=== PATIENT | female | born 1970 | race Caucasian/White ===

== ENCOUNTER 2023-08-12 12:30 | Emergency (ER) | payer BC, SELFPAY ==
[2023-08-12 13:02] VITALS: BP 141/103
[2023-08-12 13:23] LABS: % Basophils 0.5 % (0-2); % Eosinophils 1.7 % (0-6); % Immature Granulocytes 0.2 % (0-0.5); % Lymphocytes 43.1 % (20.5-51.1); % Monocytes 6.7 % (1.7-9.3); % Neutrophils 47.8 % (42.2-75.2); Absolute Eosinophils 0.1 10^3/uL (0-0.7); Absolute Lymphocytes 2.8 10^3/uL (1.2-3.4); Absolute Monocytes 0.4 10^3/uL (0.1-0.6); Absolute Neutrophils 3.1 10^3/uL (1.4-6.5); Hematocrit 39.2 % (37.0-47.0); Hemoglobin 13.3 g/dL (12.0-16.0); Mean Corp Hgb Conc. 33.9 g/dL (33.0-37.0); Mean Corpuscular Hgb 29.9 pg (27.0-31.0); Mean Corpuscular Volume 88.1 fL (81.0-99.0); Mean Platelet Volume 9.8 fL (7.4-10.4); Nucleated Red Blood Cells % 0 %; Platelet Count 280 10^3/uL (130-400); Red Blood Cell Count 4.45 10^6/uL (4.20-5.40); Red Cell Dist. Width 12.6 % (11.5-14.5); White Blood Cell Count 6.4 10^3/uL (4.8-10.8)
[2023-08-12 13:36] LABS: ALT (SGPT) 23 U/L (0-35); AST (SGOT) 24 U/L (14-36); Albumin 4.9 g/dl (3.5-5.0); Alkaline Phosphatase 98 U/L (38-126); Blood Urea Nitrogen 11 mg/dl (7-17); Calcium 9.3 mg/dl (8.4-10.2); Carbon Dioxide 27 mmol/L (22-30); Chloride 106 mmol/L (98-107); Glucose 96 mg/dl (70-99); Lipase 135 U/L (23-300); Potassium 3.9 mmol/L (3.5-5.1); Sodium 139 mmol/L (135-145); Total Bilirubin 0.4 mg/dl (0.2-1.3); Total Protein 7.5 g/dl (6.3-8.2); eGFR > 60.00
--- NOTE | 2023-08-12 16:31 | ED.GENMED ---
History of Present Illness
General
Chief Complaint: Abdominal Pain
Time Seen by Provider: 08/12/23 15:31
Travel History
Have you had any contact with someone who has COVID-19?: No
Do you have any symptoms of coronavirus? Fever > 100 degrees, chills, cough, shortness of breath, sore throat, loss of taste or smell, muscle aches, or headache?: No
History of Present Illness
History of Present Illness:
53-year-old female With hyperlipidemia presents to the emergency department for evaluation of left upper abdominal pain that began yesterday. Began randomly, no obvious provoking or palliating factors. Denies any postprandial discomfort. Pain is
described as a 'pulsating and sharp discomfort. No fever, chills, sweats, nausea, vomiting, or diarrhea. No history of intra-abdominal surgeries in the past.
Past History
Past History
ED Past Medical History: Other (Anxiety)
Social History
Tobacco: Non-smoker
Alcohol: Occasional
Family History
Family History: Negative Diabetes, Hypertension or CAD
Review of Systems
Review of Systems
Allergies reviewed?: Yes
All Other Systems: ROS reviewed and negative except as documented in HPI and ROS
Phy Exam
Physical Exam
Physical Exam:
GEN: Well appearing, NAD, WDWN
Eyes: PERRLA, EOMs intact, no scleral icterus
HENT: NCAT, oral mucosa moist
Lungs: CTAB, no wheezes, rales, rhonchi, normal chest wall excursion
Cardiac: RRR, no M/R/G, no peripheral edema. Radial pulses 2+ bilat
Abdomen: Generally soft to all 4 quadrants, mild tenderness to left upper quadrant, no rigidity or peritoneal signs, no rebound tenderness
Neuro: AO x 3
MSK: No gross deformity or ecchymosis.
Skin: No rashes, petechiae. Normal color, no pallor or jaundice.
Psych: Calm, cooperative, proper hygiene
Course
Orders/Labs/Results
Orders:
Orders
08/12/23 13:04
Electrocardiogram (*1) Urgent
Reason for Study: Abdominal Pain
08/12/23 13:05
EKG- Treatment ONCE
08/12/23 13:14
Complete Blood Count/With Diff Urgent
Comprehensive Metabolic Panel Urgent
Lipase Urgent
08/12/23 16:30
CT Abd/Pel (IV only)-DH only Urgent
Comment:
Reason For Exam: LUQ abd pain
08/12/23 13:14
08/12/23 13:14
Vital Signs
Initial and Last Documented VS:
Initial Vital Signs
Temp Pulse Resp BP Pulse Ox
98.2 F 75 16 141/103 98
08/12/23 13:02 08/12/23 13:02 08/12/23 13:02 08/12/23 13:02 08/12/23 13:02
Last Documented Vital Signs
Temp Pulse Resp BP Pulse Ox
98.2 F 75 16 141/103 98
08/12/23 13:02 08/12/23 13:02 08/12/23 13:02 08/12/23 13:02 08/12/23 13:02
MDM/Problems Addressed
MDM/Problems Addressed:
Imaging obtained to the patient's degree of tenderness. Full workup was grossly unremarkable. There are no skin changes to suggest early zoster however this was discussed with the patient has a remote possibility. No clear intra-abdominal
pathology,
*Critical Care Note
Total Time (30-74mins, 75-104mins- exclusive of procedures): Not Applicable
ED Attending Note
-
Portions of this chart may have been created with voice recognition software.� Occasional wrong word or��sound alike� substitutions may have occurred due to the inherent limitations of voice recognition software.
Discharge Plan
Departure
Patient Disposition: Home (Routine Discharge)
Date of Disposition: 08/12/23
Time of Disposition: 18:21
Patient with high blood pressure during this ER visit?: No
Discharge Problem:
Abdominal pain, left upper quadrant
Instructions: Abdominal Pain
Prescriptions:
No Action
omeprazole 20 MG capsule,delayed release(DR/EC)
20 mg PO DAILY Qty: 21 0RF
meclizine 25 MG tablet
25 mg PO BIDPRN PRN (Reason: dizziness) Qty: 14 0RF
Referrals:
Bev Ochoa CRNP [Family Provider] -
Activity Restrictions/Additional Instructions:
The cause of your pain is not clear at this time however your blood work and CAT scan are reassuring against any major problems. Please take Tylenol or ibuprofen as needed for pain control.
Interventions
Interventions:
*Risk Screen - Suicide Last Done: 08/12/23 16:55
*General Assessment Last Done: 08/12/23 16:55
*Neglect/Abuse Screening Last Done: 08/12/23 16:55
*ED COVID-19 Vaccine History Last Done: 08/12/23 13:02
FS-Nolcdo-Mnuneepmxv Assessment Last Done: 08/12/23 16:55
[2023-08-12 18:30] VITALS: BP 136/84
[2023-08-12 18:43] LABS: Urine Albumin Negative (Neg - Trace); Urine Bilirubin Negative (Negative); Urine Character Clear (Clear); Urine Color Yellow; Urine Glucose Negative (Negative); Urine Ketone Negative (Negative); Urine Leukocyte 2+ (Negative); Urine Nitrite Negative (Negative); Urine Occult Blood Negative (Negative); Urine Urobilinogen Negative (Neg - 1+)
[2023-08-12 18:50] LABS: Urine Bacteria Moderate (Negative); Urine Red Blood Cell 0-2 /HPF (0-2)
== END 2023-08-12 18:41 | disposition home or self-care (01) ==
LOC: EMR 12:30
PROVIDERS: Emergency Medicine; Physician Assistant; EMERGENCY PHYSICIAN Emergency Medicine; FAMILY PHYSICIAN Nurse Practitioner Family
DX: R10.12 Left upper quadrant pain (principal); R10.9 Unspecified abdominal pain
CPT/HCPCS: 99285; 74177; 80053; 81003; 81015; 83690; 85025; 87086; 93005; Q9967

== ENCOUNTER 2025-03-29 06:14 | Emergency (ER) | payer BC, SELFPAY ==
[2025-03-29] VITALS (8 sets, daily range): BP systolic 109–146; BP diastolic 75–89; BMI 29.1
[2025-03-29 06:50] LABS: Hematocrit 39.8 % (37.0-47.0); Hemoglobin 12.8 g/dL (12.0-16.0); Mean Corp Hgb Conc. 32.2 g/dL (33.0-37.0); Mean Corpuscular Volume 90.2 fL (81.0-99.0); Nucleated Red Blood Cells % 0 %; Platelet Count 251 10^3/uL (130-400); Red Cell Dist. Width 12.7 % (11.5-14.5)
--- NOTE | 2025-03-29 06:50 | ED.GENMED ---
History of Present Illness
<Susu Cerda MD, Resident - Last Filed: 03/29/25 13:47>
General
Chief Complaint: Chest Pain
Time Seen by Provider: 03/29/25 06:25
History of Present Illness
History of Present Illness:
54-year-old female with past medical history of hyperlipidemia and anxiety who presents for chest discomfort over the last 2 weeks. It started on the upper right side and occasionally feels it in her right armpit. This morning it radiated into the
left side of her chest which is what brought her in today. She describes the pain as heavy, constant and associated with a dry cough with deep breaths. At its worse she rates it a 3-4/10. Ibuprofen and Tylenol have seemed to make it a little bit
better in the past. Nothing seems to make it worse including large meals, exercise, right arm movement, nor deep breaths. She had a cold a few weeks ago that resolved. She has had no recent stressful life events. She has had no recent trauma or
strain to the area.
Past History
<Susu Cerda MD, Resident - Last Filed: 03/29/25 13:47>
Past History
ED Past Medical History: Hypercholesterolemia
Social History
Drug: None
Employment: Other ([employer] at [employer])
<Christine Olivo MD - Last Filed: 03/29/25 10:07>
Past History
ED Past Medical History: Other (Anxiety)
Social History
Tobacco: Non-smoker
Alcohol: Occasional
Family History
Family History: Negative Diabetes, Hypertension or CAD
Review of Systems
<Susu Cerda MD, Resident - Last Filed: 03/29/25 13:47>
Review of Systems
Constitutional: Reports no symptoms
EENT: Reports no symptoms
Respiratory: Reports cough (Dry cough with deep breaths )
Cardiac: Reports other (Chest heaviness )
ABD/GI: Reports no symptoms
: Reports no symptoms
Musculoskeletal: Reports no symptoms
Skin: Reports no symptoms
Neurological: Reports no symptoms
Hematologic/Lymphatic: Reports no symptoms
Psychiatric: Reports anxiety
Phy Exam
<Susu Cerda MD, Resident - Last Filed: 03/29/25 13:47>
Physical Exam
Physical Exam:
General: Well appearing, non-toxic
Neck: supple
Cardiac: Regular S1, S2, no murmurs, rubs or gallops
Respiratory: Bilaterally clear breath sounds, no wheezes or rales
Abdominal: Non-tender, soft, non-distended, normal BSx4
Extremities: No peripheral edema, calf tenderness or erythema.
Musculoskeletal: No tenderness with palpation of rib cage bilaterally, no swollen lymph node under right armpit
Skin: No rash on chest
Psychiatric: Mood stable
Scores
<Susu Cerda MD, Resident - Last Filed: 03/29/25 13:47>
Heart Score for Chest Pain Patients
STEMI patient?: Not applicable
Course
<Susu Cerda MD, Resident - Last Filed: 03/29/25 13:47>
Orders/Labs/Results
Orders:
Orders
03/29/25 06:10
D-Dimer Urgent
03/29/25 06:17
ECG [Electrocardiogram (*1)] Urgent
Reason for Study: Chest Pain
EKG- Treatment ONCE
03/29/25 06:31
Cardiac Monitoring- Treatment ONCE
EKG- Treatment ONCE
IV Insert/Care/Rem.- Treatment PRN
Test Result ONCE
O2 Therapy [RESP] Urgent
Titrate/Wean O2 to maintain O2 sat greater than (%): 90
Special Instructions: Maintain sats >/=90%
Pulse Ox/spot Check [RESP] Urgent
Quantity: 1
Special Instructions: ON ROOM AIR
03/29/25 06:38
Complete Blood Count/With Diff Urgent
Comprehensive Metabolic Panel Urgent
HCG, Serum Qualitative Screen Urgent
Comment: Notify provider if positive test present
Lipase Urgent
Comment: ADD ON
Troponin I Urgent
03/29/25 07:18
Ketorolac [Toradol] 30 mg IV NOW STA
03/29/25 07:30
Add On- LAB Urgent
Tests Added?: lipase
03/29/25 08:16
CR Chest - 2 Views Urgent
Comment:
Reason For Exam: Chest pain
03/29/25 10:53
Troponin I Urgent
Abnormal Lab Results
03/29/25
06:38
MCHC 32.2 L g/dL
(33.0-37.0)
Chloride 110 H mmol/L
(98-107)
Glucose 109 H mg/dl
(70-99)
ALT 37 H U/L
(0-35)
03/29/25 06:38
03/29/25 06:38
Vital Signs
Initial and Last Documented VS:
Initial Vital Signs
Temp Pulse Resp BP Pulse Ox
98.5 F 73 16 146/89 96
03/29/25 06:15 03/29/25 06:15 03/29/25 06:15 03/29/25 06:15 03/29/25 06:15
Last Documented Vital Signs
Temp Pulse Resp BP Pulse Ox
98.5 F 65 18 121/75 100
03/29/25 06:15 03/29/25 11:00 03/29/25 11:00 03/29/25 11:00 03/29/25 11:00
<Christine Olivo MD - Last Filed: 03/29/25 10:07>
Orders/Labs/Results
Orders:
Orders
03/29/25 06:10
D-Dimer Urgent
03/29/25 06:17
ECG [Electrocardiogram (*1)] Urgent
Reason for Study: Chest Pain
EKG- Treatment ONCE
03/29/25 06:31
Cardiac Monitoring- Treatment ONCE
EKG- Treatment ONCE
IV Insert/Care/Rem.- Treatment PRN
Test Result ONCE
O2 Therapy [RESP] Urgent
Titrate/Wean O2 to maintain O2 sat greater than (%): 90
Special Instructions: Maintain sats >/=90%
Pulse Ox/spot Check [RESP] Urgent
Quantity: 1
Special Instructions: ON ROOM AIR
03/29/25 06:38
Complete Blood Count/With Diff Urgent
Comprehensive Metabolic Panel Urgent
HCG, Serum Qualitative Screen Urgent
Comment: Notify provider if positive test present
Lipase Urgent
Comment: ADD ON
Troponin I Urgent
03/29/25 07:18
Ketorolac [Toradol] 30 mg IV NOW STA
03/29/25 07:30
Add On- LAB Urgent
Tests Added?: lipase
03/29/25 08:16
CR Chest - 2 Views Urgent
Comment:
Reason For Exam: Chest pain
03/29/25 10:53
Troponin I Urgent
Abnormal Lab Results
03/29/25
06:38
MCHC 32.2 L g/dL
(33.0-37.0)
Chloride 110 H mmol/L
(98-107)
Glucose 109 H mg/dl
(70-99)
ALT 37 H U/L
(0-35)
03/29/25 06:38
03/29/25 06:38
Vital Signs
Initial and Last Documented VS:
Initial Vital Signs
Temp Pulse Resp BP Pulse Ox
98.5 F 73 16 146/89 96
03/29/25 06:15 03/29/25 06:15 03/29/25 06:15 03/29/25 06:15 03/29/25 06:15
Last Documented Vital Signs
Temp Pulse Resp BP Pulse Ox
98.5 F 65 18 121/75 100
03/29/25 06:15 03/29/25 11:00 03/29/25 11:00 03/29/25 11:00 03/29/25 11:00
<Christine Olivo MD - Last Filed: 03/29/25 10:07>
MDM/Problems Addressed
Differential Diagnosis Includes:
Acute coronary syndrome, pulmonary embolism, musculoskeletal chest pain, pneumonia
MDM/Problems Addressed:
Patient presents with acute bilateral chest pain
Chronic conditions affecting care:
Patient's chest pain may be due to her anxiety, however, patient appears calm
Chronic conditions affecting care: Psychiatric illness
Acute Exacerbation and/or Progression of Chronic Illness:
Patient is acutely hypertensive, however, there is no clinical sign of hypertensive emergency such as acute CHF or neurological deficit
Acute Exacerbation and/or Progression of Chronic Illness: HTN
<Susu Cerda MD, Resident - Last Filed: 03/29/25 13:47>
*Critical Care Note
Total Time (30-74mins, 75-104mins- exclusive of procedures): Not Applicable
<Christine Olivo MD - Last Filed: 03/29/25 10:07>
*Radiology
Radiology exam reviewed: preliminary read by ED provider (No acute disease. Chest x-ray reviewed by me) and radiology read reviewed
*Pulse Oximetry
SaO2: 97
Oxygen Mode of Delivery: Room air
Patient hypoxic: no
*EKG
Interpreted by ED Provider?: Yes
Interpretation: normal
Comparison EKG: no changes
Rate: normal
Rhythm: sinus
[place]: normal axis
Interval: normal interval
QRS Pattern: normal QRS
Ischemia: no ischemia
*Shift Superintendent Interpretation
Rate: normal
Interpretation: normal
Rhythm: sinus
Data Reviewed
Review of Other/Old Records Reveals: Labs (Lab work reviewed by me from August 2023 and appears normal)
Source: patient
<Susu Cerda MD, Resident - Last Filed: 03/29/25 13:47>
Update Note
Update Note:
EKG not concerning for acute ischemic event. Troponin x2 within normal limits. D-dimer 0.29. Chest x-ray clear. Clinically stable for discharge recommend f/u with cardiology for further evaluation.
ED Attending Note
<Christine Olivo MD - Last Filed: 03/29/25 10:07>
-
Portions of this chart may have been created with voice recognition software.� Occasional wrong word or��sound alike� substitutions may have occurred due to the inherent limitations of voice recognition software.
Discharge Plan
Departure
Patient Disposition: Home (Routine Discharge)
Date of Disposition: 03/29/25
Time of Disposition: 11:41
Patient with high blood pressure during this ER visit?: Yes
Discharge Problem:
Chest pain
Instructions: Chest Pain DCA Follow Up, BLOOD PRESSURE
Prescriptions:
No Action
escitalopram oxalate [Lexapro] 10 mg Tablet
10 mg PO DAILY
Referrals:
Héctor Longoria MD [Active, Cardiology]
Referral Note: If you do not hear from the cardiology office within 2 to 3 days, please give them a call
Bev Ochoa CRNP [Family Provider]
Interventions
Interventions:
*Risk Screen - Suicide Last Done: 03/29/25 06:15
*General Assessment Last Done: 03/29/25 06:15
*Neglect/Abuse Screening Last Done: 03/29/25 06:43
*ED- Fall Risk Assessment Last Done: 03/29/25 06:43
*ED COVID-19 Vaccine History Last Done: 03/29/25 06:43
*ED Influenza Vaccine History Last Done: 03/29/25 11:52
*Nursing Disposition Last Done: 03/29/25 11:52
ED- Cardiac Assessment Last Done: 03/29/25 06:44
Discharge Date and Time
Discharge Date/Time: 03/29/25 11:54
Print Language: FRISIAN
[2025-03-29 07:12] LABS: HCG, Serum Qualitative Screen Negative
[2025-03-29 07:19] LABS: ALT (SGPT) 37 U/L (0-35); AST (SGOT) 31 U/L (14-36); Albumin 4.4 g/dl (3.5-5.0); Alkaline Phosphatase 79 U/L (38-126); Blood Urea Nitrogen 13 mg/dl (7-17); Calcium 9.3 mg/dl (8.4-10.2); Carbon Dioxide 23 mmol/L (22-30); Chloride 110 mmol/L (98-107); Estimated Creatinine Clearance 98 ml/min; Glucose 109 mg/dl (70-99); Potassium 4.6 mmol/L (3.5-5.1); Sodium 139 mmol/L (135-145); Total Protein 7.2 g/dl (6.3-8.2); eGFR > 60.00
[2025-03-29 07:31] LABS: Troponin I 0.021 ng/ml
[2025-03-29] MEDS: TORADOL 30 MG IV (07:32)
[2025-03-29 07:48] LABS: Lipase 111 U/L (23-300)
[2025-03-29 07:51] LABS: D-Dimer 0.29 ug/mlFEU (0.00-0.50)
[2025-03-29 11:32] LABS: Troponin I < 0.012 ng/ml
== END 2025-03-29 11:54 | disposition home or self-care (01) ==
LOC: EMR 06:14
PROVIDERS: EMERGENCY PHYSICIAN Emergency Medicine; FAMILY PHYSICIAN Nurse Practitioner Family
DX: R07.9 Chest pain, unspecified (principal); I10 Essential (primary) hypertension; E78.00 Pure hypercholesterolemia, unspecified; F41.9 Anxiety disorder, unspecified
CPT/HCPCS: 99284; 96374; 71046; 80053; 83690; 84484; 84703; 85025; 85379; 93005